=== PATIENT | female | born 2005 | race Caucasian/White ===

== ENCOUNTER 2025-05-01 15:07 | Emergency (ER) | payer OTHER ==
[2025-05-01 15:24] VITALS: TEMP 98.4
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
[2025-05-01 17:08] VITALS: BP 98/69; PULSE 98; RESP 20
== END 2025-05-01 17:08 | disposition home or self-care (01) ==
LOC: EC 15:07
DX: Z04.1 Encounter for examination and observation following transport accident (principal); F17.290 Nicotine dependence, other tobacco product, uncomplicated; V43.62XA Car passenger injured in collision with other type car in traffic accident, initial encounter
CPT/HCPCS: 99283